=== PATIENT | male | born 1955 | race Caucasian/White ===

== ENCOUNTER 2023-03-27 13:12 | Outpatient (CLI) | payer MEDICARE, OTHER ==
--- NOTE | 2023-03-27 17:35 | XRAY Report ---
PROCEDURE: Lumbar Spine 2 View INDICATIONS: LOW BACK PAIN TECHNIQUE: 2 views of the lumbar spine were acquired. COMPARISON: None. FINDINGS: Bones: 5 [id number] vertebrae are present. There is normal bony alignment. Degenerative disc d isease throughout lumbar spine is seen. No vertebral body compression fractures. No suspicious bony lesions. Soft tissues: Overlying bowel gas pattern is normal. No suspicious soft tissue calcifications. IMPRESSION: Degenerative disc disease throughout lumbar spine more notably at L4-5 and L5-S1 levels. No acute compression fracture or spondylolisthesis. Reviewed by: Yuri Cardenas MD on 03/27/2023 5:34 PM PDT Approved by: Yuri Cardenas MD on 03/27/2023 5:34 PM PDT Station ID: [id number]
== END 2023-03-27 13:13 | disposition home or self-care (01) ==
LOC: DI 13:12
PROVIDERS: ATTEND Registered Nurse
DX: M51.36 Other intervertebral disc degeneration, lumbar region (principal); M51.37 Other intervertebral disc degeneration, lumbosacral region

== ENCOUNTER 2023-05-07 09:01 | Outpatient (CLI) | payer MEDICARE, OTHER ==
--- NOTE | 2023-05-07 11:03 | XRAY Report ---
PROCEDURE: Cervical Spine 2 View INDICATIONS: ARTHRITIS,CERVICAL SPINE TECHNIQUE: 3 view(s) of the cervical spine were acquired. COMPARISON: None. FINDINGS: Bones: No fractures or dislocations to the T1 level. The lateral masses of C1 appear intact on the odontoid view. No suspicious bony lesions. Straightening of normal cervical lordosis. Multilevel deg enerative changes of the cervical spine with facet and uncovertebral arthropathy, disc height loss, e ndplate degenerative changes and spurring. This is most pronounced at C5-C6 and C6-C7. Soft tissues: No prevertebral soft tissue swelling. IMPRESSION: Multilevel degenerative changes of the cervical spine, most pronounced at C5-C6 and C6-C 7. Reviewed by: Khai Woodward MD on 05/07/2023 11:02 AM PDT Approved by: Khai Woodward MD on 05/07/2023 11:02 AM PDT Station ID: [id number]
== END 2023-05-07 09:02 | disposition home or self-care (01) ==
LOC: DI 09:01
PROVIDERS: ATTEND Family Medicine
DX: M47.812 Spondylosis without myelopathy or radiculopathy, cervical region (principal)

== ENCOUNTER 2023-11-06 09:26 | Emergency (ER) | payer MEDICARE, OTHER ==
[2023-11-06 09:42] VITALS: O2SAT 96
[2023-11-06] MEDS: predniSONE 20 MG TABLET PO STA (10:29)
--- NOTE | 2023-11-06 10:37 | XRAY Report ---
PROCEDURE: Chest 2V INDICATIONS: cough TECHNIQUE: 2 views of the chest were acquired. COMPARISON: None. FINDINGS: Surgical changes and devices: None. Lungs and pleura: No pleural effusions or pneumothorax. Lungs are clear. Mediastinum: Mediastinal contours appear normal. Heart size is normal. Bones and chest wall: No suspicious bony lesions. Overlying soft tissues appear unremarkable. IMPRESSION: No acute cardiopulmonary process. Reviewed by: Palomo Quinonez MD on 11/06/2023 10:36 AM [facility] Approved by: Palomo Quinonez MD on 11/06/2023 10:36 AM [facility] Station ID: [id number]
[2023-11-06 11:20] VITALS: BP 147/85
--- NOTE | 2023-11-06 11:30 | ED Physician Documentation ---
PD HPI URI - Stated complaint Stated Complaint: COUGH/SPIT UP BLOOD - Chief complaint Chief Complaint: Resp - History obtained from History obtained from: Patient - Additional information Additional information: Patient is a 68-year-old male with a history of hypertension presenting for evaluation of some spots of blood noticed in his sputum this morning. Patient was diagnosed with RSV last week and has had a continued cough. He states that the cough is worse in the morning just after waking up where he feels like he needs to clear out the congestion that is settled in overnight. He states this morning he coughed up a large amount of mucus twice. The mucus is usually yellow-colored. This morning though on 2 episodes there is some spots of blood. No alisia hemoptysis or clots. He has since had more sputum production it without any blood visible. No chest pain or shortness of air and he states that his cough actually is starting to get better. No dizziness or lightheadedness. Does not smoke. No history of PE or DVT.No calf swelling or pain. Review of Systems Constitutional: denies: Fever Nose: reports: Congestion Cardiac: denies: Chest pain / pressure Respiratory: reports: Cough. denies: Dyspnea GI: denies: Abdominal Pain, Vomiting PD PAST MEDICAL HISTORY - Past Medical History Past Medical History: Yes Cardiovascular: Hypertension Respiratory: Asthma HEENT: Chronic sinusitis - Present Medications Home Medications: Ambulatory Orders Medication Instructions Recorded Confirmed Albuterol Sulfate [Proair 2 puffs IH Q4HR PRN 11/06/23 11/06/23 Digihaler] Budesonide/Formoterol Fumarate 2 puffs INH BID 11/06/23 11/06/23 [Symbicort 160-4.5 Mcg Inhaler] Losartan Potassium 100 mg PO HS 11/06/23 11/06/23 amLODIPine [Norvasc] 10 mg PO DAILY 11/06/23 11/06/23 predniSONE [Deltasone] 40 mg PO DAILY 4 Days #8 tablet 11/06/23 - Allergies Allergies/Adverse Reactions: Allergies Allergy/AdvReac Type Severity Reaction Status Date / Time No Known Drug Allergies Allergy Verified 11/06/23 09:38 - Social History Does the pt smoke?: No Smoking Status: Never smoker Does the pt drink ETOH?: Yes Does the pt have substance abuse?: No PD ED PE NORMAL - General General: Alert and oriented X 3, No acute distress, Well developed/nourished - HEENT HEENT: Atraumatic, Moist mucous membranes, Pharynx benign - Neck Neck: Supple, no meningeal sign - Cardiac Cardiac: RRR, Strong equal pulses - Respiratory Respiratory: No respiratory distress, Clear bilaterally - Abdomen Abdomen: Soft, Non tender - Derm Derm: Warm and dry - Neuro Neuro: Normal speech Results - Vitals Vitals: Vital Signs - 24 hr 11/06/23 11/06/23 09:32 11:16 Temperature 37 C 36.7 C Heart Rate 75 70 Respiratory 15 17 Rate Blood Pressure 148/85 H 147/85 H O2 Saturation 96 96 Oxygen O2 Source Room air PD Medical Decision Making - ED course ED course: Patient with recent URI symptoms and RSV diagnosis presenting for evaluation of spots of blood seen in sputum twice this morning. Has had other episodes of coughing since then without any blood. No alisia Hemoptysis or clots. No history of PE or DVT. No leg swelling or pain. No recent immobilization.Chest x-ray which I reviewed is negative for pneumonia or mass. I have witnessed patient coughing other times here and have visualized the sputum with no blood seen. At this time I do not see other indications of a PE and recommend close follow-up with primary care. Patient also counseled on strict return precautions for any recurrence or worsening symptoms. Departure - Departure Disposition: 01 Home, Self Care Clinical Impression: Bronchitis Condition: Stable Instructions: ED Bronchitis Asthmatic Prescriptions: predniSONE [Deltasone] 40 mg PO DAILY 4 Days #8 tablet Comments: Your chest x-ray does not show signs of pneumonia. The blood streaking in your cough also seems to have resolved since being here. I would recommend continued use of your albuterol inhaler as needed, making sure you are staying hydrated. I have sent a short course of prednisone to the [facility] pharmacy for bronchitis. You have declined cough medication at this time. If you develop any recurrence or worsening symptoms please return to the emergency department. Forms: PCP List Discharge Date/Time: 11/06/23 11:37
== END 2023-11-06 11:37 | disposition home or self-care (01) ==
LOC: ED 09:26
DX: J40 Bronchitis, not specified as acute or chronic (principal); I10 Essential (primary) hypertension; Z79.899 Other long term (current) drug therapy
CPT/HCPCS: 71046; 99283; J7512

== ENCOUNTER 2023-11-14 11:08 | Outpatient (CLI) | payer MEDICARE, OTHER | END 2023-11-14 11:09 | disposition home or self-care (01) | LOC: LAB 11:08 | PROVIDERS: ATTEND Urology | DX: R97.20 Elevated prostate specific antigen [PSA] (principal) | CPT/HCPCS: 36415; 84153; 84154 ==

== ENCOUNTER 2023-12-04 08:57 | Outpatient (CLI) | payer MEDICARE, OTHER ==
[2023-12-04 09:16] LABS: BASOPHILS # (AUTO) 0.1 10^3/uL (0.0-0.1); BASOPHILS % (AUTO) 1.2 %; EOSINOPHILS # (AUTO) 0.6 10^3/uL (0.0-0.7); EOSINOPHILS % (AUTO) 10.1 %; HCT - HEMATOCRIT 39.4 % (42.0-52.0); HGB - HEMOGLOBIN 13.1 g/dL (14.0-18.0); LYMPHOCYTES # (AUTO) 1.8 10^3/uL (1.5-3.5); LYMPHOCYTES % (AUTO) 29.5 %; MEAN CORPUSCULAR HEMOGLOBIN 30.8 pg (27.0-31.0); MEAN CORPUSCULAR HGB CONC 33.2 g/dL (32.0-36.0); MEAN CORPUSCULAR VOLUME 92.7 fL (80.0-94.0); MEAN PLATELET VOLUME 9.3 fL (7.4-11.4); MONOCYTES # (AUTO) 0.6 10^3/uL (0.0-1.0); MONOCYTES % (AUTO) 9.2 %; NEUTROPHILS % (AUTO) 49.8 %; PLT - PLATELET COUNT 417 10^3/uL (130-450); RED BLOOD COUNT 4.25 10^6/uL (4.70-6.10); RED CELL DISTRIBUTION WIDTH 12.7 % (12.0-15.0)
[2023-12-04 09:43] LABS: ALBUMIN 4.2 g/dL (3.2-5.5); ALBUMIN/GLOBULIN RATIO 1.7 (1.0-2.2); BILIRUBIN,TOTAL 0.7 mg/dL (0.2-1.0); CALCIUM 9.6 mg/dL (8.5-10.3); CREATININE 1.2 mg/dL (0.6-1.3); POTASSIUM 4.2 mmol/L (3.5-4.5); TOTAL PROTEIN 6.7 g/dL (6.4-8.9)
[2023-12-04 10:46] LABS: ESTIMATED AVERAGE GLUCOSE 111 mg/dL (70-100); HEMOGLOBIN A1c% 5.5 % (4.27-6.07)
== END 2023-12-04 08:58 | disposition home or self-care (01) ==
LOC: LAB 08:57
PROVIDERS: ATTEND Internal Medicine
DX: Z00.00 Encounter for general adult medical examination without abnormal findings (principal); E55.9 Vitamin D deficiency, unspecified
CPT/HCPCS: 36415; 80053; 82306; 83036; 85025

== ENCOUNTER 2023-12-30 08:32 | Outpatient (CLI) | payer MEDICARE, OTHER ==
[2023-12-30 08:59] LABS: CHOL/HDL RATIO 2.3 (<5.0); CHOLESTEROL 148 mg/dL; HDL CHOLESTEROL 64 mg/dL; LDL CHOLESTEROL,CALCULATED 72 mg/dL; LDL/HDL RATIO 1.1 (<3.6); TRIGLYCERIDES 59 mg/dL (48-352); VLDL CHOLESTEROL 12 mg/dL
== END 2023-12-30 08:33 | disposition home or self-care (01) ==
LOC: LAB 08:32
PROVIDERS: ATTEND Physician Assistant
DX: E78.5 Hyperlipidemia, unspecified (principal)
CPT/HCPCS: 36415; 80061; 83721

== ENCOUNTER 2024-04-11 10:46 | Emergency (ER) | payer MEDICARE, OTHER ==
[2024-04-11 11:16] VITALS: BP 126/69; O2SAT 100
--- NOTE | 2024-04-11 11:42 | ED Physician Documentation ---
PD HPI URI - Stated complaint Stated Complaint: DESOUZA,FEVER,CONGESTION,COUGH - Chief complaint Chief Complaint: Resp - History obtained from History obtained from: Patient - History of Present Illness Timing - onset: Yesterday Timing duration: Days (1-2) Timing details: Abrupt onset, Still present Associated symptoms: Fever, Chills, Nasal congestion, Dry cough, NVD (nausea without vomiting). No: Chest pain Contributing factors: No: Sick contact Similar symptoms before: Diagnosis (had RSV last year. Never has had Flu. Not exposded to COVID that he knows.) Review of Systems Constitutional: reports: Fever, Chills, Myalgias, Fatigue Nose: reports: Rhinorrhea / runny nose, Congestion Throat: denies: Sore throat Respiratory: reports: Dyspnea, Cough, Wheezing GI: reports: Nausea. denies: Vomiting Neurologic: reports: Generalized weakness, Headache. denies: Confused, Altered mental status PD PAST MEDICAL HISTORY - Past Medical History Past Medical History: Yes Cardiovascular: Hypertension Respiratory: Asthma HEENT: Chronic sinusitis - Past Surgical History Past Surgical History: Yes - Present Medications Home Medications: Ambulatory Orders Medication Instructions Recorded Confirmed Albuterol Sulfate [Proair 2 puffs IH Q4HR PRN 11/06/23 11/06/23 Digihaler] Budesonide/Formoterol Fumarate 2 puffs INH BID 11/06/23 11/06/23 [Symbicort 160-4.5 Mcg Inhaler] Losartan Potassium 100 mg PO HS 11/06/23 11/06/23 amLODIPine [Norvasc] 10 mg PO DAILY 11/06/23 11/06/23 predniSONE [Deltasone] 40 mg PO DAILY 4 Days #8 tablet 11/06/23 Albuterol Sulf [Ventolin Hfa 2 - 3 puffs INH Q4HR PRN #1 each 04/11/24 Inhaler] Oseltamivir [Tamiflu] 75 mg PO BID #10 cap 04/11/24 dexAMETHasone [Decadron] 4 mg PO DAILY #7 tablet 04/11/24 guaiFENesin/CODEINE [Robitussin AC] 10 ml PO Q6H PRN #240 ml 04/11/24 - Allergies Allergies/Adverse Reactions: Allergies Allergy/AdvReac Type Severity Reaction Status Date / Time No Known Drug Allergies Allergy Verified 04/11/24 11:07 - Social History Does the pt smoke?: No Smoking Status: Never smoker Does the pt drink ETOH?: Yes Does the pt have substance abuse?: No PD ED PE NORMAL - Vitals Vital signs reviewed: Yes - General General: Alert and oriented X 3, No acute distress, Well developed/nourished - HEENT HEENT: Ears normal, Pharynx benign - Neck Neck: Supple, no meningeal sign, No adenopathy - Cardiac Cardiac: RRR, No murmur - Respiratory Respiratory: No: Clear bilaterally (no coarse sounds but does have some exp wheezing and lessened tidal volume. ) - Abdomen Abdomen: Soft, Non tender - Derm Derm: Normal color, Warm and dry Results - Vitals Vitals: Oxygen O2 Source Room air - Labs Labs: Laboratory Tests 04/11/24 11:10 Nasal Adenovirus (PCR) NOT DETECTED Nasal B. parapertussis DNA (PCR) NOT DETECTED Nasal Coronavir 229E PCR NOT DETECTED Nasal Coronavir HKU1 PCR NOT DETECTED Nasal Coronavir NL63 PCR NOT DETECTED Nasal Coronavir OC43 PCR NOT DETECTED Nasal Enterovir/Rhinovir PCR NOT DETECTED Nasal Influ A H1 2009 PCR DETECTED A Nasal Influenza B PCR NOT DETECTED Nasal Parainfluen 1 PCR NOT DETECTED Nasal Parainfluen 2 PCR NOT DETECTED Nasal Parainfluen 3 PCR NOT DETECTED Nasal Parainfluen 4 PCR NOT DETECTED Nasal RSV (PCR) NOT DETECTED Nasal B.pertussis DNA PCR NOT DETECTED Nasal C.pneumoniae (PCR) NOT DETECTED Prudencio Human Metapneumo PCR NOT DETECTED Nasal M.pneumoniae (PCR) NOT DETECTED Nasal SARS-CoV-2 (PCR) NOT DETECTED PD Medical Decision Making - ED course Complexity details: reviewed results (Influenza.), considered differential (seems viral like. can test for those. Symptoms meds otherwise. And it is flaring his asthma with wheezing and cough. So adding steroids, cough meds, and refill of inhaler so has enough. ), d/w patient Departure - Departure Disposition: 01 Home, Self Care Clinical Impression: Exacerbation of asthma, Influenza A Condition: Stable Record reviewed to determine appropriate education?: Yes Instructions: ED Flu Follow-Up: Erna Rivera PA [Primary Care Provider] - Prescriptions: Albuterol Sulf [Ventolin Hfa Inhaler] 2 - 3 puffs INH Q4HR PRN #1 each PRN Reason: Shortness Of Air/Wheezing dexAMETHasone [Decadron] 4 mg PO DAILY #7 tablet guaiFENesin/CODEINE [Robitussin AC] 10 ml PO Q6H PRN #240 ml PRN Reason: Cough Oseltamivir [Tamiflu] 75 mg PO BID #10 cap Comments: Your respiratory viral panel test positive for influenza A, H1. Your chest x- ray is clear without any signs of pneumonia. New influenza will give your general symptoms that you are having and can certainly cause bronchial irritation and flareup of your asthma. Continue with your albuterol inhaler and I would assume go fairly regular 2 to 3 puffs 4 times daily for the next several days to week and add at times if needed. To decrease the bronchial inflammation and therefore better breathing, we can add daily steroid for the next 5 to 7 days. I prescribed dexamethasone (similar to Medrol or prednisone). For the cough itself you can use cough medicine and or benzonatate. Generally stay well-hydrated and use Tylenol every 4-6 hours if needed for fevers or pains or aches. Anticipated time course is about a week. For influenza itself, an antiviral medicine called Tamiflu may have some benefit in decreasing the severity and duration. I wrote a prescription for it as we discussed. If you are finding annoying side effects after taking the medication (most commonly nausea cramps or diarrhea) then you can stop the Tamiflu as it is not required in order to get better. I sent your prescriptions to your preferred pharmacy. Forms: PCP List Discharge Date/Time: 04/11/24 13:07
--- NOTE | 2024-04-11 11:54 | XRAY Report ---
PROCEDURE: Chest 1V INDICATIONS: cough/congestion TECHNIQUE: One view of the chest was acquired. COMPARISON: 11/06/2023. FINDINGS: Surgical changes and devices: None. Lungs and pleura: No pleural effusions or pneumothorax. Lungs are clear. Mediastinum: Mediastinal contours appear normal. Heart size is normal. Bones and chest wall: No suspicious bony lesions. Overlying soft tissues appear unremarkable. IMPRESSION: No acute cardiopulmonary process. Reviewed by: Lu Huerta MD on 04/11/2024 10:53 AM [facility] Approved by: Lu Huerta MD on 04/11/2024 10:53 AM [facility] Station ID: [id number]
[2024-04-11] MEDS: BENZONATATE 100 MG CAPSULE PO STA (12:11)
[2024-04-11] MEDS: dexAMETHasone 4 MG TABLET PO STA (12:11)
[2024-04-11] MEDS: ACETAMINOPHEN 500 MG TABLET PO STA (12:12)
[2024-04-11] MEDS: ALBUTEROL 1 PUFF INH STA (12:19)
[2024-04-11 12:31] LABS: B. PARAPERTUSSIS- RESP PCR PAN NOT DETECTED; B. PERTUSSIS- RESP PCR PANEL NOT DETECTED; C. PNEUMONIAE- RESP PCR PANEL NOT DETECTED; CORONAVIRUS 229E-RESP PCR NOT DETECTED; CORONAVIRUS HKU1-RESP PCR NOT DETECTED; CORONAVIRUS NL63-RESP PCR NOT DETECTED; CORONAVIRUS OC43-RESP PCR NOT DETECTED; HUMAN METAPNEUMOVIRUS NOT DETECTED; INFLUENZA A H1 2009- RESP PCR DETECTED; INFLUENZA B - RESP PCR PANEL NOT DETECTED; M. PNEUMONIAE- RESP PCR PANEL NOT DETECTED; PARAINFLUENZA VIRUS 1 NOT DETECTED; PARAINFLUENZA VIRUS 2 NOT DETECTED; PARAINFLUENZA VIRUS 3 NOT DETECTED; PARAINFLUENZA VIRUS 4 NOT DETECTED; RHINOVIRUS/ENTEROVIRUS NOT DETECTED; RSV- RESP PCR PANEL NOT DETECTED; SARS-CoV-2 -RESP PCR PANEL NOT DETECTED
== END 2024-04-11 13:07 | disposition home or self-care (01) ==
LOC: ED 10:46
DX: J10.1 Influenza due to other identified influenza virus with other respiratory manifestations (principal); J45.901 Unspecified asthma with (acute) exacerbation; I10 Essential (primary) hypertension; Z79.899 Other long term (current) drug therapy
CPT/HCPCS: 71045; 87633; 94640; 99283; A9270; J8540

== ENCOUNTER 2024-04-26 12:34 | Outpatient (CLI) | payer MEDICARE, OTHER ==
[2024-04-26 13:37] LABS: INFLUENZA A- RESP PCR PANEL NOT DETECTED; INFLUENZA B - RESP PCR PANEL NOT DETECTED; RSV- RESP PCR PANEL NOT DETECTED; SARS-CoV-2 -RESP PCR PANEL NOT DETECTED
== END 2024-04-26 12:35 | disposition home or self-care (01) ==
LOC: LAB 12:34
DX: J34.89 Other specified disorders of nose and nasal sinuses (principal); R05.8 Other specified cough
CPT/HCPCS: 87637